=== PATIENT | male | born 1995 | race Caucasian/White ===

== ENCOUNTER 2020-03-07 14:16 | Emergency (ER) | payer MEDICAID ==
--- NOTE | 2020-03-07 14:59 | EDM.PDOC ---
ED HPI GENERAL MEDICAL PROBLEM - General Chief Complaint: ENT Problem Stated Complaint: SORE THROAT Time Seen by Provider: 03/07/20 14:59 Source of Information: Reports: Patient History Limitations: Reports: No Limitations - History of Present Illness INITIAL COMMENTS - FREE TEXT/NARRATIVE: pt arrived with alot of pain in the throat area. He has been on amoxicillin. He notes a white coating present. Onset: Gradual, Other (last 2 days. ) Duration: Hour(s): Location: Reports: Face Associated Symptoms: Reports: No Other Symptoms throat Pain Score (Numeric/FACES): 5 - Related Data Allergies Allergy/AdvReac Type Severity Reaction Status Date / Time tramadol Allergy Hives Verified 03/07/20 14:37 Home Meds: Home Meds Amoxicillin 500 mg PO TID 03/07/20 [History] Buprenorphine HCl/Naloxone HCl [Suboxone 12 mg-3 mg Sl Film] 12 mg PO DAILY 12/26 [History] Gabapentin [Neurontin] 300 mg PO DAILY 03/07/20 [History] Naproxen [EC-Naprosyn] 375 mg PO BID 03/07/20 [History] buPROPion HCL [Wellbutrin Xl] 300 mg PO DAILY 03/07/20 [History] Past Medical History Psychiatric History: Reports: Anxiety, Depression - Past Surgical History GI Surgical History: Reports: Other (See Below) Other GI Surgeries/Procedures: procedure for pyloric stenosis Social & Family History - Tobacco Use Smoking Status *Q: Current Every Day Smoker Years of Tobacco use: 5 Packs/Tins Daily: 0.2 - Recreational Drug Use Recreational Drug Use: No ED ROS ENT - Review of Systems Review Of Systems: See Below Constitutional: Reports: No Symptoms HEENT: Reports: Throat Pain, Throat Swelling, Other (pt had a recent dental infection) Respiratory: Reports: No Symptoms Cardiovascular: Reports: No Symptoms Endocrine: Reports: No Symptoms GI/Abdominal: Reports: No Symptoms : Reports: No Symptoms Musculoskeletal: Reports: No Symptoms ED EXAM, ENT - Physical Exam Exam: See Below Text/Narrative:: pt arrived with a sore throat with alot of coating. He has been amoxicillin. He had a severe dental infection. Exam Limited By: No Limitations General Appearance: Alert, Anxious, Moderate Distress Ears: Normal TMs Nose: Normal Inspection Mouth/Throat: Dental Pain, Dental Tenderness, Tonsillar Erythema, Tonsillar Exudates, Other ( tongue is very coated. ) Head: Atraumatic Neck: Lymphadenopathy (L) Respiratory/Chest: No Respiratory Distress Course - Vital Signs Last Recorded V/S: Last Vital Signs Temp 36.3 C 03/07/20 14:40 Pulse 93 03/07/20 14:40 Resp 16 03/07/20 14:40 BP 142/79 H 03/07/20 14:40 Pulse Ox 99 03/07/20 14:40 - Orders/Labs/Meds Orders: Active Orders 24 hr Category Date Time Status CULTURE STREP A CONFIRMATION [] Stat Lab 03/07/20 15:01 Results STREP SCRN A RAPID W CULT CONF [] Stat Lab 03/07/20 15:01 Results Labs: Laboratory Tests 03/07/20 03/07/20 Range/Units 15:09 15:09 WBC 11.4 H (4.5-11.0) K/uL RBC 5.12 (4.30-5.90) M/uL Hgb 14.8 (12.0-15.0) g/dL Hct 43.0 (40.0-54.0) % MCV 84 (80-98) fL MCH 29 (27-31) pg MCHC 34 (32-36) % Plt Count 250 (150-400) K/uL Neut % (Auto) 72 H (36-66) % Lymph % (Auto) 13 L (24-44) % [place] % (Auto) 14 H (2-6) % Eos % (Auto) 0 L (2-4) % Baso % (Auto) 0 (0-1) % Monoscreen Negative (NEGATIVE) HIV-1 Ab Rapid Screen Non-reactive (NON-REACT.) Meds: Medications Discontinued Medications Generic Name Dose Route Start Last Admin Trade Name Freq PRN Reason Stop Dose Admin Ceftriaxone Sodium 1 gm/ 0 gm 03/07/20 16:08 Lidocaine HCl 2.1 ml IM 03/07/20 16:09 ONETIME ONE - Re-Assessments/Exams Free Text/Narrative Re-Assessment/Exam: 03/07/20 16:14 mono spot is neg, chip is neg, strept is neg, wbc is mildly elevavted. Pt was concerned about a HIV exposure in the past. Departure - Departure Time of Disposition: 16:19 Disposition: Home, Self-Care 01 Condition: Fair Clinical Impression: Dental infection, Acute pharyngitis - Discharge Information Instructions: Dental Abscess, [id number] Referrals: PCP,None [Primary Care Provider] - Forms: ED Department Discharge Care Plan Goals: dental appt, mycostatin susp irrigate throat and mouth tid, clindomycin 300mg tid for 7 days. stop amoxicillin, use alot of yogurt and probiotic while on the antibiotic. Sepsis Event Note - Evaluation Sepsis Screening Result: No Definite Risk - Focused Exam Vital Signs: Vital Signs Temp Pulse Resp BP Pulse Ox 03/07/20 14:40 36.3 C 93 16 142/79 H 99 03/07/20 14:36 36.3 C 93 16 142/79 H 99 Date Exam was Performed: 03/07/20 Time Exam was Performed: 16:22 - My Orders Last 24 Hours: My Active Orders 03/07/20 15:01 CULTURE STREP A CONFIRMATION [RM] Stat STREP SCRN A RAPID W CULT CONF [RM] Stat - Assessment/Plan Last 24 Hours: My Active Orders 03/07/20 15:01 CULTURE STREP A CONFIRMATION [RM] Stat STREP SCRN A RAPID W CULT CONF [] Stat
[2020-03-07] MEDS ORDERED: cefTRIAXone 1 GM, Lidocaine 1% 2.1 ML IM ONE ×2 (16:08)
== END 2020-03-07 16:44 | disposition home or self-care (01) ==
LOC: JP.ED 14:16
DX: J02.9 Acute pharyngitis, unspecified (principal); K04.7 Periapical abscess without sinus; F41.9 Anxiety disorder, unspecified; F32.9 Major depressive disorder, single episode, unspecified; F17.210 Nicotine dependence, cigarettes, uncomplicated; Z88.6 Allergy status to analgesic agent; Z79.899 Other long term (current) drug therapy
CPT/HCPCS: 36415; 85025; 86308; 87081; 87220; 87449; 87880; 96372; 99283; J0696; J2001

== ENCOUNTER 2020-06-05 22:24 | Emergency (ER) | payer MEDICAID ==
--- NOTE | 2020-06-05 23:02 | EDM.PDOC ---
ED HPI GENERAL MEDICAL PROBLEM - General Chief Complaint: Skin Complaint Stated Complaint: HIVES Time Seen by Provider: 06/05/20 22:49 Source of Information: Reports: Patient, Family, RN Notes Reviewed History Limitations: Reports: No Limitations - History of Present Illness INITIAL COMMENTS - FREE TEXT/NARRATIVE: 24-year-old gentleman presents emergency department a complaint of rash, he has hives covering upper lower extremities trunk anterior posterior it is been ongoing for the last week or so will wax and wane he has used Benadryl to help with the itching symptoms he is unsure of the possible exposure that he has had no difficulty swallowing no shortness of breath - Related Data Allergies Allergy/AdvReac Type Severity Reaction Status Date / Time tramadol Allergy Hives Verified 06/05/20 22:41 Home Meds: Home Meds Buprenorphine HCl/Naloxone HCl [Suboxone 12 mg-3 mg Sl Film] 12 mg PO DAILY 03/07/20 [History] Gabapentin [Neurontin] 300 mg PO DAILY 03/07/20 [History] buPROPion HCL [Wellbutrin Xl] 300 mg PO DAILY 03/07/20 [History] Past Medical History Psychiatric History: Reports: Addiction, Anxiety, Depression - Past Surgical History GI Surgical History: Reports: Other (See Below) Other GI Surgeries/Procedures: procedure for pyloric stenosis Social & Family History - Tobacco Use Smoking Status *Q: Current Every Day Smoker Years of Tobacco use: 8 Packs/Tins Daily: 0.7 - Caffeine Use Caffeine Use: Reports: Coffee, Energy Drinks, Soda - Recreational Drug Use Recreational Drug Use: No ED ROS GENERAL - Review of Systems Review Of Systems: See Below Constitutional: Reports: No Symptoms HEENT: Reports: No Symptoms Respiratory: Reports: No Symptoms Cardiovascular: Reports: No Symptoms GI/Abdominal: Reports: No Symptoms Skin: Reports: Rash, Urticaria ED EXAM, SKIN/RASH Exam: See Below Exam Limited By: No Limitations General Appearance: Alert, WD/WN, No Apparent Distress Throat/Mouth: Normal Inspection, Normal Lips, Normal Teeth, Normal Gums, Normal Oropharynx, Normal Voice, No Airway Compromise Respiratory/Chest: No Respiratory Distress, Lungs Clear, Normal Breath Sounds, No Accessory Muscle Use, Chest Non-Tender Cardiovascular: Regular Rate, Rhythm, No Murmur Skin: Other (Uticarea anterior posterior trunk upper and lower extremities) Course - Vital Signs Last Recorded V/S: Last Vital Signs Temp 96.6 F L 06/05/20 22:46 Pulse 74 06/05/20 22:46 Resp 18 06/05/20 22:46 BP 133/64 06/05/20 22:46 Pulse Ox 97 06/05/20 22:46 Departure - Departure Time of Disposition: 23:01 Disposition: Home, Self-Care 01 Condition: Fair Clinical Impression: Urticaria - Discharge Information Instructions: Qing, [id number] Referrals: PCP,None [Primary Care Provider] - Additional Instructions: Take full course of prednisone, continue to use Benadryl as needed for itching symptoms, please followup with your primary care provider in 3-5 days if not better, please call return to the emergency department with worsening of symptoms. Sepsis Event Note (ED) - Evaluation Sepsis Screening Result: No Definite Risk - Focused Exam Vital Signs: Vital Signs Temp Pulse Resp BP Pulse Ox 06/05/20 22:46 96.6 F L 74 18 133/64 97 - Assessment/Plan Plan: Assessment Acuity = acute Site and laterality = Uticarea Etiology = unknown Manifestations = pruritus Location of injury = Home Lab values = none Plan Continue with Benadryl prescription written for prednisone 20 mg once a day for 5 days follow-up primary care 3 to 5 days if no improvement This note was dictated using [employer] voice recognition software please call with any questions on syntax or grammar.
== END 2020-06-05 23:06 | disposition home or self-care (01) ==
LOC: JP.ED 22:24
DX: L50.9 Urticaria, unspecified (principal); Z88.6 Allergy status to analgesic agent; F17.210 Nicotine dependence, cigarettes, uncomplicated; F41.9 Anxiety disorder, unspecified; F32.9 Major depressive disorder, single episode, unspecified; Z79.899 Other long term (current) drug therapy; Z88.5 Allergy status to narcotic agent
CPT/HCPCS: 99282

== ENCOUNTER 2020-06-09 21:35 | Emergency (ER) | payer MEDICAID ==
--- NOTE | 2020-06-09 22:30 | EDM.PDOC ---
ED HPI GENERAL MEDICAL PROBLEM - General Chief Complaint: Skin Complaint Stated Complaint: HIVES Time Seen by Provider: 06/09/20 22:15 Source of Information: Reports: Patient, Old Records, RN History Limitations: Reports: No Limitations - History of Present Illness INITIAL COMMENTS - FREE TEXT/NARRATIVE: Prince is a 24 yo patient that presents to ED for ongoing issues with hives and itching. He was seen by Dr Officer on 06/05 and prescribed prednisone tabs for 5 days. Prince states that he has finished the prednisone but indicated to the nurse that he did not take them as he didn't like them. He works installing and removing manufactured/ mobile homes- states that he wears pants and boots but he will still get dirty underneath. He states that he is itchy everywhere and that it is keeping him awake at night. He does have linear petechiae on his anterior thighs from scratching. No hives are present today in ER. States that he is still taking benadryl regularly. No resp compromise present. No known allergen exposure. No obvious bug bites, scabbing, or rashes. Onset: Gradual Duration: Day(s): (7) Location: Reports: Back, Lower Extremity, Left, Lower Extremity, Right Quality: Reports: Other (itchy) denies pain Pain Score (Numeric/FACES): 0 - Related Data Allergies Allergy/AdvReac Type Severity Reaction Status Date / Time tramadol Allergy Hives Verified 06/09/20 21:54 Home Meds: Home Meds Buprenorphine HCl/Naloxone HCl [Suboxone 12 mg-3 mg Sl Film] 12 mg PO DAILY 03/07/20 [History] Gabapentin [Neurontin] 300 mg PO DAILY 03/07/20 [History] buPROPion HCL [Wellbutrin Xl] 300 mg PO DAILY 03/07/20 [History] Past Medical History Psychiatric History: Reports: Addiction, Anxiety, Depression - Past Surgical History GI Surgical History: Reports: Other (See Below) Other GI Surgeries/Procedures: procedure for pyloric stenosis Social & Family History - Tobacco Use Smoking Status *Q: Current Every Day Smoker Years of Tobacco use: 5 Packs/Tins Daily: 0.5 - Caffeine Use Caffeine Use: Reports: Soda - Recreational Drug Use Recreational Drug Use: No ED ROS GENERAL - Review of Systems Review Of Systems: See Below Constitutional: Reports: No Symptoms HEENT: Reports: No Symptoms Respiratory: Reports: No Symptoms. Denies: Wheezing Cardiovascular: Reports: No Symptoms Endocrine: Reports: No Symptoms GI/Abdominal: Reports: No Symptoms : Reports: No Symptoms Musculoskeletal: Reports: No Symptoms Skin: Reports: Other (pruritis ) Neurological: Reports: No Symptoms Psychiatric: Reports: No Symptoms Hematologic/Lymphatic: Reports: No Symptoms Immunologic: Reports: No Symptoms ED EXAM, SKIN/RASH Exam: See Below Exam Limited By: No Limitations General Appearance: Alert, WD/WN, No Apparent Distress Ears: Normal External Exam, Hearing Grossly Normal Nose: Normal Inspection, Normal Mucosa Throat/Mouth: Normal Inspection, No Airway Compromise, Other (posterior pharynx erythematous with mild tonsillar exudate on right tonsil. Tonsils +1 bilat. ) Head: Atraumatic, Normocephalic Neck: Normal Inspection, Supple, Non-Tender, Lymphadenopathy (R) (mild), Lymphadenopathy (L) (mild) Respiratory/Chest: Lungs Clear, Normal Breath Sounds. No: Wheezing, Stridor Cardiovascular: Normal Peripheral Pulses, Regular Rate, Rhythm Peripheral Pulses: 2+: Radial (L), Radial (R) GI/Abdominal: Normal Bowel Sounds, Soft, Non-Tender (Male) Exam: Deferred Rectal (Males) Exam: Deferred Back Exam: Normal Inspection. No: CVA Tenderness (R), CVA Tenderness (L) Extremities: Normal Inspection, Normal Capillary Refill Neurological: Alert Psychiatric: Normal Affect Skin: Warm, Dry Location, Skin: Chest, Abdomen, Back, Upper Extremity, Right, Upper Extremity, Left, Lower Extremity, Right, Lower Extremity, Left, Genital, Groin, Other (no hives are present, pruritis on all extremities and trunk. linear petechiae from scratching on anterior bilat thighs. ) Characteristics: Linear, Petechial Course - Vital Signs Last Recorded V/S: Last Vital Signs Temp 98.3 F 06/09/20 21:50 Pulse 70 06/09/20 21:50 Resp 16 06/09/20 21:50 BP 116/65 06/09/20 21:50 Pulse Ox 96 06/09/20 21:50 - Orders/Labs/Meds Orders: Active Orders 24 hr Category Date Time Status CULTURE STREP A CONFIRMATION [RM] Stat Lab 06/09/20 22:24 Results STREP SCRN A RAPID W CULT CONF [RM] Stat Lab 06/09/20 22:24 Results Meds: Medications Discontinued Medications Generic Name Dose Route Start Last Admin Trade Name Binta PRN Reason Stop Dose Admin Hydroxyzine HCl 25 mg 06/09/20 22:54 06/09/20 23:02 Atarax PO 06/09/20 22:55 25 mg ONETIME ONE Administration Departure - Departure Time of Disposition: 22:58 Disposition: Home, Self-Care 01 Clinical Impression: Pruritus, Viral pharyngitis - Discharge Information *PRESCRIPTION DRUG MONITORING PROGRAM REVIEWED*: No *COPY OF PRESCRIPTION DRUG MONITORING REPORT IN PATIENT DIONICIO: No Instructions: Pruritus, Pharyngitis, [id number] Referrals: PCP,None [Primary Care Provider] - Forms: ED Department Discharge Additional Instructions: Your strep test was negative. Your culture will be available in 3 days- you'll get a letter in the mail if negative, a phone call if positive. For the itching, you can take the hydroxyzine 25mg orally every 8 hours as needed. This medication may you sleeping so do not operate machinery or drive while taking. You can try cetirizine (histamine aleyda) 10 mg in the mornings and this may help with the itching during the days. This medication is not sedating. Use a non-scented lotion to help with the itching (any scents may aggravate the skin). May try an OTC benadryl cream also. Follow-up with your PCP in 3-5 days if you are not better. Return to ED if hives return with respiratory compromise. Sepsis Event Note (ED) - Evaluation Sepsis Screening Result: No Definite Risk - Focused Exam Vital Signs: Vital Signs Temp Pulse Resp BP Pulse Ox 06/09/20 21:50 98.3 F 70 16 116/65 96 06/09/20 21:48 98.3 F 70 16 116/65 96 - My Orders Last 24 Hours: My Active Orders 06/09/20 22:24 CULTURE STREP A CONFIRMATION [RM] Stat STREP SCRN A RAPID W CULT CONF [RM] Stat - Assessment/Plan Last 24 Hours: My Active Orders 06/09/20 22:24 CULTURE STREP A CONFIRMATION [RM] Stat STREP SCRN A RAPID W CULT CONF [RM] Stat Plan: discharge home with rx for hydroxyzine 25mg PO every 8 hours as needed for itching. patient is agreeable to the plan.
[2020-06-09] MEDS ORDERED: hydrOXYzine HCl 25 MG Tab PO ONE (22:54)
== END 2020-06-09 23:17 | disposition home or self-care (01) ==
LOC: JP.ED 21:35
DX: L29.9 Pruritus, unspecified (principal); J02.9 Acute pharyngitis, unspecified; F41.9 Anxiety disorder, unspecified; F32.9 Major depressive disorder, single episode, unspecified; F17.210 Nicotine dependence, cigarettes, uncomplicated; Z79.899 Other long term (current) drug therapy; Z88.5 Allergy status to narcotic agent
CPT/HCPCS: 87081; 87880; 99283; A9270; 99282

== ENCOUNTER 2020-06-21 08:32 | Emergency (ER) | payer MEDICAID ==
[2020-06-21] MEDS ORDERED: Lidocaine 1% with EPINEPHrine 1:100,000 50 ML MDV SUBCUT STA (08:39)
[2020-06-21] MEDS ORDERED: Diphtheria,Pertussis(Acell),Tetanus Vaccine 0.5 ML SDV IM ONE (08:40)
[2020-06-21] MEDS ORDERED: Bacitracin Oint 1 GM U/D Packet TOP ONE (08:40)
--- NOTE | 2020-06-21 08:48 | EDM.PDOC ---
ED HPI GENERAL MEDICAL PROBLEM - General Chief Complaint: Skin Complaint Stated Complaint: [facility] Time Seen by Provider: 06/21/20 08:40 Source of Information: Reports: Patient, EMS, Old Records, Police History Limitations: Reports: No Limitations - History of Present Illness INITIAL COMMENTS - FREE TEXT/NARRATIVE: 24 yo male was arrested this morning and while in the squad car head butted the metal cage in front of him incurring a forehead laceration for which the police brought him here via EMS for repair. He is under the influence of at a minimum alcohol per police breath test. 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 (see below) (none) - Related Data Allergies Allergy/AdvReac Type Severity Reaction Status Date / Time tramadol Allergy Hives Verified 06/09/20 21:54 Home Meds: Home Meds Buprenorphine HCl/Naloxone HCl [Suboxone 12 mg-3 mg Sl Film] 12 mg PO DAILY 03/07/20 [History] Gabapentin [Neurontin] 300 mg PO DAILY 03/07/20 [History] buPROPion HCL [Wellbutrin Xl] 300 mg PO DAILY 03/07/20 [History] Past Medical History Psychiatric History: Reports: Addiction, Anxiety, Depression - Past Surgical History GI Surgical History: Reports: Other (See Below) Other GI Surgeries/Procedures: procedure for pyloric stenosis Social & Family History - Caffeine Use Caffeine Use: Reports: Soda ED ROS GENERAL - Review of Systems Review Of Systems: Unable To Obtain (uncooperative) Reason Not Obtained: uncoopertive Constitutional: Reports: No Symptoms Musculoskeletal: Reports: No Symptoms Skin: Reports: Wound (upper forehead laceration ) Neurological: Reports: No Symptoms ED EXAM, SKIN/RASH Exam: See Below Exam Limited By: No Limitations General Appearance: Alert, WD/WN, No Apparent Distress Eye Exam: Bilateral Eye: Normal Inspection Neurological: Alert, Oriented, CN II-XII Intact, Normal Gait, Other (agitated.) Skin: Warm, Dry, Normal Color, No Rash, Wound/Incision (horizontal upper(at hairline) forehead laceration, no active bleeding now.) Location, Skin: Face (upper forehead laceration) Characteristics: Linear Associated features: Tenderness. No: Swelling, Induration, Lymphangitis Course - Vital Signs Text/Narrative:: Patient was continually verbally abusive, at times telling us he wanted the cut repaired, at other times swearing at everyone in the room and threatening. After several minutes of attempts at getting him to calm down the decision was made to abort repair efforts and he was released to police custody. Last Recorded V/S: Last Vital Signs Temp 37.7 C 06/21/20 08:34 Pulse 109 H 06/21/20 08:34 Resp 20 06/21/20 08:34 BP 136/86 06/21/20 08:34 Pulse Ox 98 06/21/20 08:34 - Orders/Labs/Meds Orders: Active Orders 24 hr Category Date Time Status Vaccines to be Administered [RC] PER UNIT ROUTINE Care 06/21/20 08:40 Ordered Bacitracin [Bacitracin Oint 1 GM] Med 06/21/20 08:40 Once 1 dose TOP ONETIME ONE Diphth,Pertuss(Acell),Tet Vac [Adacel] Med 06/21/20 08:40 Once 0.5 ml IM .ONCE ONE Lidocaine 1% w/EPINEPHrine [Xylocaine 1% with Med 06/21/20 08:39 Stat EPINEPHrine 1:100,000] 5 ml SUBCUT NOW STA Departure - Departure Time of Disposition: 08:51 Disposition: DC/Tfer to Other 70 Condition: Fair Clinical Impression: Forehead laceration Qualifiers: Encounter type: initial encounter Qualified Code(s): S01.81XA - Laceration wit hout foreign body of other part of head, initial encounter - Discharge Information *PRESCRIPTION DRUG MONITORING PROGRAM REVIEWED*: No *COPY OF PRESCRIPTION DRUG MONITORING REPORT IN PATIENT DIONICIO: No Referrals: PCP,None [Primary Care Provider] - Forms: ED Department Discharge Additional Instructions: Released to police custody. Sepsis Event Note (ED) - Evaluation Sepsis Screening Result: No Definite Risk - Focused Exam Vital Signs: Vital Signs Temp Pulse Resp BP Pulse Ox 06/21/20 08:34 37.7 C 109 H 20 136/86 98 - My Orders Last 24 Hours: My Active Orders 06/21/20 08:39 Lidocaine 1% w/EPINEPHrine [Xylocaine 1% with EPINEPHrine 1:100,000] 5 ml SUBCUT NOW STA 06/21/20 08:40 Vaccines to be Administered [RC] PER UNIT ROUTINE Bacitracin [Bacitracin Oint 1 GM] 1 dose TOP ONETIME ONE Diphth,Pertuss(Acell),Tet Vac [Adacel] 0.5 ml IM .ONCE ONE - Assessment/Plan Last 24 Hours: My Active Orders 06/21/20 08:39 Lidocaine 1% w/EPINEPHrine [Xylocaine 1% with EPINEPHrine 1:100,000] 5 ml SUBCUT NOW [facility] 06/21/20 08:40 Vaccines to be Administered [RC] PER UNIT ROUTINE Bacitracin [Bacitracin Oint 1 GM] 1 dose TOP ONETIME ONE Diphth,Pertuss(Acell),Tet Vac [Adacel] 0.5 ml IM .ONCE ONE
== END 2020-06-21 09:00 | disposition other institution (70) ==
LOC: JP.ED 08:32
DX: S01.81XA Laceration without foreign body of other part of head, initial encounter (principal); F41.9 Anxiety disorder, unspecified; F32.9 Major depressive disorder, single episode, unspecified; Z88.5 Allergy status to narcotic agent; Z79.899 Other long term (current) drug therapy; W26.9XXA Contact with unspecified sharp object(s), initial encounter
CPT/HCPCS: 99284

== ENCOUNTER 2020-06-21 10:53 | Emergency (ER) | payer MEDICAID ==
[2020-06-21] MEDS ORDERED: Ondansetron 4 MG Tab.DIS PO ONE (11:21)
[2020-06-21] MEDS ORDERED: Lidocaine 1% with EPINEPHrine 1:100,000 50 ML MDV INFILT ONE (11:31)
[2020-06-21] MEDS ORDERED: Bacitracin Oint 1 GM U/D Packet TOP ONE (11:32)
[2020-06-21] MEDS ORDERED: Acetaminophen 500 MG Tab PO ONE (11:40)
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
[2020-06-21] MEDS ORDERED: Diphtheria,Pertussis(Acell),Tetanus Vaccine 0.5 ML SDV IM ONE (11:53)
== END 2020-06-21 12:43 ==
LOC: JP.ED 10:53
DX: S01.81XA Laceration without foreign body of other part of head, initial encounter (principal); F41.9 Anxiety disorder, unspecified; F32.9 Major depressive disorder, single episode, unspecified; F17.210 Nicotine dependence, cigarettes, uncomplicated; Z88.5 Allergy status to narcotic agent; Z79.899 Other long term (current) drug therapy; Z23 Encounter for immunization; W22.8XXA Striking against or struck by other objects, initial encounter
CPT/HCPCS: 12011; 90471; 90715; 99284; A9270